=== PATIENT | female | born 1995 | race Caucasian/White ===

== ENCOUNTER 2017-06-17 12:42 | Emergency (ER) | payer BC ==
[~2017-06-17 12:42] MED LIST: CHOL200022; DIVSR125 PO; FEXO-67 PO; FLUT16SP19 NS; IVAB5TAB PO; IVAB7.5T; LEVA15HF IH; LIDO700A29 TD; MAGN500C10 PO; MIDO5TAB20 PO; MODA100T39 PO; OMEP-218 PO; ONDA4TAB PO; PROP60CA28 PO; SODI1TAB48 PO; [UNRECOGNIZED DRUG - CODE]; [UNRECOGNIZED DRUG - OTHER]
[2017-06-17] MEDS ORDERED: MIDO10TA9 PO (12:53)
[2017-06-17] MEDS ORDERED: DROX300C PO (12:53)
[2017-06-17] MEDS ORDERED: MODA100T39 PO (12:53)
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
[2017-06-17] MEDS ORDERED: ONDANSETRON 4 MG/2 ML VIAL IVP ONE (13:00)
[2017-06-17] MEDS ORDERED: LORazepam 2 MG/ML VIAL IVP ONE (13:00)
[2017-06-17] MEDS ORDERED: fentaNYL CITR 100 MCG/2 ML AMP IVP ONE (13:00)
[2017-06-17] MEDS ORDERED: IBUPROFEN 600 MG TAB PO ONE (13:35)
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
[2017-06-17 13:50] VITALS: BP 125/90
== END 2017-06-17 13:55 | disposition home or self-care (01) ==
LOC: ER 13:02
DX: S63.501A Unspecified sprain of right wrist, initial encounter (principal); V00.321A Fall from snow-skis, initial encounter; Y93.23 Activity, snow (alpine) (downhill) skiing, snowboarding, sledding, tobogganing and snow tubing
CPT/HCPCS: 73090; 73110; 99283; L3908

== ENCOUNTER 2018-04-07 20:08 | Emergency (ER) | payer OTHER, BC ==
[~2018-04-07 20:08] MED LIST changes: +DROX300C PO; +MIDO10TA9 PO
--- NOTE | 2018-04-07 20:35 | ER Report ---
History and Physical Time Seen By MD: 20:35 Hx. of Stated Complaint: Pt. having LLQ pain for a week. It had been intermittent, but now is constant. Pain 8/10. Denies fever, nausea present but no vomitting. Pain gets better with applied pressure on that area. Pt. has an IUD. LMP 03/29/18 HPI/ROS CHIEF COMPLAINT: abdominal pain HISTORY OF PRESENT ILLNESS: This is a 22 year old female. She is having left lower abdominal pain. Started about 1 week ago. Was intermittent, but now constant and becoming more severe. Sharp in quality. Worse with moving. Had a period last week and pain started at that time and has persisted and worsened as noted. No blood in stool noted. Normal urination without dysuria or frequency. Has had nausea, but no vomiting. No fevers. Seems to improved with pressure over the area. Tried a Lidoderm patch, no relief. Has an IUD, LMP as noted. Allergies: Coded Allergies: Penicillins (Verified Allergy, Unknown, 04/07/18) hydromorphone (Verified Allergy, Unknown, 04/07/18) latex (Verified Allergy, Unknown, 04/07/18) montelukast (Verified Allergy, Unknown, 04/07/18) morphine (Verified Allergy, Unknown, 04/07/18) papaya (Verified Allergy, Unknown, 04/07/18) Home Meds Active Scripts Ketorolac Tromethamine (KETOROLAC TROMETHAMINE) 10 Mg Tab, 10 MG PO Q6H PRN for PAIN, #12 TAB 0 Refills Prov:GAIL PATEL MD 04/08/18 Ivabradine HCl (Corlanor) 5 Mg Tablet, 5 MG PO BID, #60 TAB 0 Refills Prov:GAIL PATEL MD 06/27/16 Reported Medications Droxidopa (Northera) 300 Mg Capsule, 1 CAP PO TID 06/17/17 Midodrine Hcl (MIDODRINE HCL) 10 Mg Tablet, 5 MG PO TID 06/17/17 Modafinil (PROVIGIL) 100 Mg Tablet, 50 MG PO BID 06/17/17 [Salt Sticks] No Conflict Check 06/27/16 Propranolol Hcl (INDERAL LA) 60 Mg Cap.sa.24h, 10 MG PO PRN 05/17/16 Ondansetron (ZOFRAN ODT) 4 Mg Tab.rapdis, 4 MG PO Q8H PRN for prn, TAB.ELIZABETH 05/17/16 Magnesium Oxide (MAGNESIUM) 500 Mg Capsule, 500 MG PO, CAPSULE 05/17/16 Lidocaine (LIDODERM) 700 Mg Adh..patch, 1-3 PATCH TD QDAY 05/17/16 Levalbuterol Tartrate (XOPENEX HFA) 15 Gm Hfa.aer.ad, 15 GM IH q4h prn 05/17/16 Fluticasone Prop 50 Mcg Ns (FLONASE 50 MCG NS) 16 Gm [place].susp, 2 SPRAYS NS QDAY, BOT 05/17/16 Fexofenadine Hcl (DEEPALI ALLERGY) 180 Mg Tablet, 180 MG PO QDAY 05/17/16 Cholecalciferol (Vitamin D3) (Vitamin D-3) 2,000 Unit Tablet, QDAY 05/17/16 Discontinued Reported Medications Omeprazole Magnesium (PRILOSEC OTC) 20 Mg Tablet., 2 TAB PO QDAY, TAB 05/17/16 Reviewed Nurses Notes: Yes Hx Substance Use Disorder: No Hx Alcohol Use: No Constitutional Vital Sign - Last 24 Hours 04/07/18 04/07/18 04/07/18 04/07/18 20:13 20:15 20:30 20:38 Temp 98.8 Pulse 71 76 Resp 16 B/P (MAP) 130/94 130/94 (106) 122/102 (109) Pulse Ox 97 98 O2 Delivery Room Air 04/07/18 04/07/18 04/07/18 04/07/18 21:00 21:08 21:30 22:00 Pulse 63 B/P (MAP) 120/86 (97) 124/87 (99) 120/91 (101) Pulse Ox 97 04/07/18 04/07/18 04/07/18 04/07/18 22:05 22:10 22:25 22:30 Pulse 54 55 64 B/P (MAP) 121/83 (96) Pulse Ox 96 95 92 04/07/18 04/07/18 04/07/18 04/07/18 22:40 22:55 23:00 23:10 Pulse 58 64 59 B/P (MAP) 119/90 (100) Pulse Ox 95 95 95 04/07/18 04/07/18 04/07/1827/19 23:30 23:40 23:55 00:00 Pulse 57 59 B/P (MAP) 106/79 (88) 105/71 (82) Pulse Ox 96 92 04/08/18 04/08/18 04/08/18 04/08/18 00:00 00:15 00:30 00:45 Pulse 55 53 59 B/P (MAP) 105/71 (82) 83/66 (72) Pulse Ox 95 96 97 04/08/18 01:00 Pulse 75 B/P (MAP) 109/78 (88) Pulse Ox 91 Intake and Output 04/07/18 04/07/18 04/08/18 15:00 23:00 07:00 Intake Total 1000 ml Balance 1000 ml Physical Exam General Appearance: The patient is alert. No acute distress. Eyes: Pupils are equal, round. No pallor, injection or icterus. ENT: Mucous membranes are moist. Normal oral mucosa. Posterior oropharynx is normal. Neck: Supple and non tender. Respiratory: Lungs are clear to auscultation. Cardiovascular: Regular rate and rhythm. No murmurs, gallops or rubs. Normal capillary refill. Gastrointestinal: Abdomen is soft, has tenderness in lower left quadrant. Nondistended. Guarding, but no rebound. No masses or organomegaly. Normal active bowel sounds. Has some mild CVA on the left side. Neurological: Alert and oriented x3. No focal neurologic deficits Skin: Warm and dry. Musculoskeletal: Extremities are nontender. No tenderness in palpation of the cervical, thoracic and lumbar spine. DIFFERENTIAL DIAGNOSIS: After history and physical exam, differential diagnosis was considered for abdominal pain in a female including but not limited to ovarian cyst, pelvic inflammatory disease, ovarian torsion, urinary tract infection, and appendicitis. Medical Decision Making Data Points Result Diagram: 04/07/18201904/07/182019 Laboratory Hematology Test 04/07/18 20:17 04/07/18 20:20 Urine Color Yellow Urine Clarity Clear Urine pH 5.0 pH (4.8-9.5) Urine Specific [place] 1.011 Urine Protein Negative mg/dL (NEGATIVE) Urine Glucose (UA) Negative mg/dL (NEGATIVE) Urine Ketones Negative mg/dL (NEGATIVE) Urine Blood Negative (NEGATIVE) Urine Nitrite Negative (NEGATIVE) Urine Bilirubin Negative (NEGATIVE) Urine Urobilinogen Negative mg/dL (0.2-1.9) Urine Leukocyte Esterase Negative (NEGATIVE) Urine RBC 1 /HPF (0-2/HPF) Urine WBC 3 /HPF (0-5/HPF) Urine Squamous Epithelial Cells Few /LPF (</=FEW) Urine Bacteria Few /HPF (NONE-FEW) Urine Mucus None /HPF (NONE-FEW) Red Blood Count 5.10 M/uL (4.17-5.56) Mean Corpuscular Volume 91.2 fL (80.0-96.0) Mean Corpuscular Hemoglobin 31.4 pg (26.0-33.0) Mean Corpuscular Hemoglobin Concent 34.4 g/dL (32.0-36.0) Red Cell Distribution Width 12.7 % (11.5-14.5) Mean Platelet Volume 8.3 fL (7.2-11.1) Neutrophils (%) (Auto) 69.5 % (39.4-72.5) Lymphocytes (%) (Auto) 20.6 % (17.6-49.6) Monocytes (%) (Auto) 7.2 % (4.1-12.4) Eosinophils (%) (Auto) 2.3 % (0.4-6.7) Basophils (%) (Auto) 0.4 % (0.3-1.4) Nucleated RBC Relative Count (auto) 0.0 /100WBC Neutrophils # (Auto) 11.6 K/uL (2.0-7.4) Lymphocytes # (Auto) 3.5 K/uL (1.3-3.6) Monocytes # (Auto) 1.2 K/uL (0.3-1.0) Eosinophils # (Auto) 0.4 K/uL (0.0-0.5) Basophils # (Auto) 0.1 K/uL (0.0-0.1) Nucleated RBC Absolute Count (auto) 0.00 K/uL Sodium Level 140 mmol/L (137-145) Potassium Level 3.9 mmol/L (3.5-5.0) Chloride Level 107 mmol/L (98-107) Carbon Dioxide Level 25 mmol/L (22-31) Blood Urea Nitrogen 8 mg/dl (7-18) Creatinine 0.70 mg/dl (0.52-1.04) Glomerular Filtration Rate Calc > 60.0 Random Glucose 99 mg/dl (75-110) Calcium Level 9.8 mg/dl (8.4-10.2) Total Bilirubin 1.1 mg/dl (0.2-1.3) Aspartate Amino Transf (AST/SGOT) 19 U/L (0-35) Alanine Aminotransferase (ALT/SGPT) 21 U/L (0-56) Alkaline Phosphatase 59 U/L (0-126) Total Protein 8.0 g/dl (6.3-8.2) Albumin 4.8 g/dl (3.5-5.0) Amylase Level 63 U/L (0-110) Lipase 105 U/L (23-300) Human Chorionic Gonadotropin, Qual Negative (NEGATIVE) Chemistry Test 04/07/18 20:17 04/07/18 20:20 Urine Color Yellow Urine Clarity Clear Urine pH 5.0 pH (4.8-9.5) Urine Specific [place] 1.011 Urine Protein Negative mg/dL (NEGATIVE) Urine Glucose (UA) Negative mg/dL (NEGATIVE) Urine Ketones Negative mg/dL (NEGATIVE) Urine Blood Negative (NEGATIVE) Urine Nitrite Negative (NEGATIVE) Urine Bilirubin Negative (NEGATIVE) Urine Urobilinogen Negative mg/dL (0.2-1.9) Urine Leukocyte Esterase Negative (NEGATIVE) Urine RBC 1 /HPF (0-2/HPF) Urine WBC 3 /HPF (0-5/HPF) Urine Squamous Epithelial Cells Few /LPF (</=FEW) Urine Bacteria Few /HPF (NONE-FEW) Urine Mucus None /HPF (NONE-FEW) White Blood Count 16.8 k/uL (4.5-11.0) Red Blood Count 5.10 M/uL (4.17-5.56) Hemoglobin 16.0 g/dL (12.0-16.0) Hematocrit 46.5 % (34.0-47.0) Mean Corpuscular Volume 91.2 fL (80.0-96.0) Mean Corpuscular Hemoglobin 31.4 pg (26.0-33.0) Mean Corpuscular Hemoglobin Concent 34.4 g/dL (32.0-36.0) Red Cell Distribution Width 12.7 % (11.5-14.5) Platelet Count 374 K/uL (150-450) Mean Platelet Volume 8.3 fL (7.2-11.1) Neutrophils (%) (Auto) 69.5 % (39.4-72.5) Lymphocytes (%) (Auto) 20.6 % (17.6-49.6) Monocytes (%) (Auto) 7.2 % (4.1-12.4) Eosinophils (%) (Auto) 2.3 % (0.4-6.7) Basophils (%) (Auto) 0.4 % (0.3-1.4) Nucleated RBC Relative Count (auto) 0.0 /100WBC Neutrophils # (Auto) 11.6 K/uL (2.0-7.4) Lymphocytes # (Auto) 3.5 K/uL (1.3-3.6) Monocytes # (Auto) 1.2 K/uL (0.3-1.0) Eosinophils # (Auto) 0.4 K/uL (0.0-0.5) Basophils # (Auto) 0.1 K/uL (0.0-0.1) Nucleated RBC Absolute Count (auto) 0.00 K/uL Glomerular Filtration Rate Calc > 60.0 Calcium Level 9.8 mg/dl (8.4-10.2) Total Bilirubin 1.1 mg/dl (0.2-1.3) Aspartate Amino Transf (AST/SGOT) 19 U/L (0-35) Alanine Aminotransferase (ALT/SGPT) 21 U/L (0-56) Alkaline Phosphatase 59 U/L (0-126) Total Protein 8.0 g/dl (6.3-8.2) Albumin 4.8 g/dl (3.5-5.0) Amylase Level 63 U/L (0-110) Lipase 105 U/L (23-300) Human Chorionic Gonadotropin, Qual Negative (NEGATIVE) Urinalysis Test 04/07/18 20:17 Urine Color Yellow Urine Clarity Clear Urine pH 5.0 pH (4.8-9.5) Urine Specific [place] 1.011 Urine Protein Negative mg/dL (NEGATIVE) Urine Glucose (UA) Negative mg/dL (NEGATIVE) Urine Ketones Negative mg/dL (NEGATIVE) Urine Blood Negative (NEGATIVE) Urine Nitrite Negative (NEGATIVE) Urine Bilirubin Negative (NEGATIVE) Urine Urobilinogen Negative mg/dL (0.2-1.9) Urine Leukocyte Esterase Negative (NEGATIVE) Urine RBC 1 /HPF (0-2/HPF) Urine WBC 3 /HPF (0-5/HPF) Urine Squamous Epithelial Cells Few /LPF (</=FEW) Urine Bacteria Few /HPF (NONE-FEW) Urine Mucus None /HPF (NONE-FEW) EKG/Imaging Imaging EXAMINATION: CT abdomen and pelvis with IV contrast HISTORY: Abdominal pain for 2 days. TECHNIQUE: Axial CT images of the abdomen and pelvis were obtained with IV contrast, with coronal and sagittal 2D reconstructed images. One of the following dose optimization techniques was utilized in the performance of this exam: Automated exposure control; adjustment of the mA and/or kV according to the patient's size; or use of an iterative reconstruction technique. Specific details can be referenced in the facility's radiology CT exam operational policy. Contrast: 75 mL of IV Isovue-370. COMPARISON: None. FINDINGS: Liver: There is a 1 cm hypodensity in the superior aspect of segment IV, likely a small cyst or hemangioma. No other focal liver lesion. The hepatic veins and portal veins are patent. Gallbladder and bile ducts: Negative. Spleen: Negative. Pancreas: Negative. Adrenal glands: Negative. Kidneys: Negative. No hydronephrosis or urinary calculi. Bowel and peritoneum: The small bowel and colon are normal in caliber, without evidence of obstruction or any focal inflammatory process. No localized bowel wall thickening. Normal appendix in the right lower quadrant. No free fluid or free intraperitoneal air. Pelvic structures: The uterus is anteverted in position, with an IUD in place along the central endometrial cavity. There is a complex left adnexal cyst, measuring 4.3 x 4.6 cm. The right adnexa is grossly unremarkable by CT. Lymph node assessment: Negative. Vessels: Negative. Musculoskeletal: Negative. Body wall: Negative. Lung bases: Negative. IMPRESSION: 1. Complex left adnexal cyst, measuring up to 4.6 cm. Differential consid erations include a hemorrhagic cyst in the left ovary, other complex ovarian cyst, or less likely PID with tubo-ovarian abscess. Correlate clinically and with appropriate laboratory analysis. Follow-up pelvic ultrasound could be performed for further evaluation. 2. IUD in place along the central endometrial cavity. 3. No other acute intra-abdominal findings. The visualized appendix is unremarkable. Report Dictated By: Ben Morales MD at 04/07/2018 10:04 PM EXAMINATION: ENDOVAGINAL PELVIC ULTRASOUND WITH DOPPLER DATE: 04/07/2018 10:51 PM INDICATION: Left lower abdominal pain, left adnexal cyst on CT. TECHNIQUE: Endovaginal pedersen scale, color, and pulsed Doppler ultrasound examination of the pelvis was performed. COMPARISON: Same-day CT abdomen and pelvis. FINDINGS: The uterus is anteverted and anteflexed and measures 6.5 x 3.1 x 3.6 cm. There is no definite focal lesion in the myometrium. The endometrial stripe measures 4 mm in AP thickness, which is within normal limits. IUD in place. The right ovary measures 3.7 x 1.9 x 2.1 cm and demonstrates physiologic follicles and appears to have preserved venous and arterial waveforms on pulsed Doppler. The left ovary measures 6.2 x 5.0 x 5.8 cm and demonstrates physiologic follicles and appears to have preserved venous and arterial waveforms on pulsed Doppler. The left ovary also contains a complex cyst with a thick septation versus 2 adjacent complex cysts. The smaller component measures 3.1 x 3.4 x 1.1 cm, and the larger component measures 4.9 x 3.7 x 4.0 cm. Both lesions have largely slightly heterogeneously isoechoic internal components with a small amount of anechoic component. There is no free fluid or adnexal mass in the pelvic cavity. IMPRESSION: Complex left ovarian cyst/cysts with no definite evidence of torsion. This may represent an atypical appearance of a hemorrhagic cyst. Recommend 6-12 week follow-up, or earlier if clinically indicated. Consider gynecologic consultation. Report Dictated By: Marc Davenport MD at 04/08/2018 12:15 AM ED Course/Re-evaluation ED Course CT and ultrasound revealed hemorrhagic ovarian cysts. Normal blood flow without torsion. Pain controlled with a dose of Fentanyl. She prefers not to use any other pain medicine because of family history of addiction. We gave Toradol for pain. She will follow-up with her EDUCATIONAL PROGRAMMING DIRECTOR on Monday morning. Decision to Disposition Date: Apr 08, 2018 Decision to Disposition Time: 00:53 Depart Departure Latest Vital Signs Vital Signs Date Time Temp Pulse Resp B/P (MAP) Pulse Ox O2 Delivery O2 Flow Rate FiO2 04/08/18 01:00 75 109/78 (88) 91 04/07/18 20:13 98.8 16 Room Air Impression: Primary Impression: Hemorrhagic cyst of left ovary Condition: Improved Disposition: HOME OR SELF-CARE Referrals: CAITLIN GUERRERO MD (PCP) New Scripts Ketorolac Tromethamine (KETOROLAC TROMETHAMINE) 10 Mg Tab 10 MG PO Q6H PRN for PAIN, #12 TAB 0 Refills Prov: GAIL PATEL MD 04/08/18 Patient Instructions: Ovarian Cyst (ED) Additional Instructions: Take Toradol 10mg, one every 6 hours as needed for pain. Call your EDUCATIONAL PROGRAMMING DIRECTOR on Monday morning for follow-up Return as needed for worsening pain. GAIL PATEL MD Apr 07, 2018 20:35
[2018-04-07] MEDS ORDERED: NS(*) 0.9% 1000 ML BAG 1,000 ML IV ONE (21:00)
[2018-04-07 21:16] LABS: PLATELET COUNT, AUTOMATED 374 K/uL (150-450)
[2018-04-07] MEDS ORDERED: IOPAMIDOL 76% 50 ML INFUS BTL 100 ML ONE (21:37)
--- NOTE | 2018-04-07 22:13 | RADIOLOGY IMAGING REPORT ---
FACILITY: [facility] - [place] PATIENT NAME: Jaz Hernandez : 1995 MR: [id number] V: [id number] EXAM DATE: ORDERING PHYSICIAN: GAIL PATEL TECHNOLOGIST: Location: [facility] - [place] Patient: Jaz Hernandez : 1995 Visit/Account:[id number] Date of Sevice: 04/07/2018 EXAMINATION: CT abdomen and pelvis with IV contrast HISTORY: Abdominal pain for 2 days. TECHNIQUE: Axial CT images of the abdomen and pelvis were obtained with IV contrast, with coronal a nd sagittal 2D reconstructed images. One of the following dose optimization techniques was utilized in the performance of this exam: Autom ated exposure control; adjustment of the mA and/or kV according to the patient's size; or use of an i terative reconstruction technique. Specific details can be referenced in the facility's radiology C T exam operational policy. Contrast: 75 mL of IV Isovue-370. COMPARISON: None. FINDINGS: Liver: There is a 1 cm hypodensity in the superior aspect of segment IV, likely a small cyst or elana ngioma. No other focal liver lesion. The hepatic veins and portal veins are patent. Gallbladder and bile ducts: Negative. Spleen: Negative. Pancreas: Negative. Adrenal glands: Negative. Kidneys: Negative. No hydronephrosis or urinary calculi. Bowel and peritoneum: The small bowel and colon are normal in caliber, without evidence of obstructi on or any focal inflammatory process. No localized bowel wall thickening. Normal appendix in the righ t lower quadrant. No free fluid or free intraperitoneal air. Pelvic structures: The uterus is anteverted in position, with an IUD in place along the central e ndometrial cavity. There is a complex left adnexal cyst, measuring 4.3 x 4.6 cm. The right adnexa is grossly unremarkable by CT. Lymph node assessment: Negative. Vessels: Negative. Musculoskeletal: Negative. Body wall: Negative. Lung bases: Negative. IMPRESSION: 1. Complex left adnexal cyst, measuring up to 4.6 cm. Differential considerations include a hemorrhag ic cyst in the left ovary, other complex ovarian cyst, or less likely PID with tubo-ovarian abscess. Correlate clinically and with appropriate laboratory analysis. Follow-up pelvic ultrasound could be p erformed for further evaluation. 2. IUD in place along the central endometrial cavity. 3. No other acute intra-abdominal findings. The visualized appendix is unremarkable. Report Dictated By: Ben Morales MD at 04/07/2018 10:04 PM Report E-Signed By: Ben Morales MD at 04/07/2018 10:09 PM WSN:[id number]
[2018-04-07] MEDS ORDERED: fentaNYL CITR 100 MCG/2 ML AMP IVP ONE (22:55)
--- NOTE | 2018-04-08 00:25 | RADIOLOGY IMAGING REPORT ---
FACILITY: [facility] - [place] PATIENT NAME: Jaz Hernandez : 1995 MR: [id number] V: [id number] EXAM DATE: ORDERING PHYSICIAN: GAIL PATEL TECHNOLOGIST: Location: [facility] - [place], [place] Patient: Jaz Hernandez : 1995 Visit/Account:[id number] Date of Sevice: 04/07/2018 EXAMINATION: ENDOVAGINAL PELVIC ULTRASOUND WITH DOPPLER DATE: 04/07/2018 10:51 PM INDICATION: Left lower abdominal pain, left adnexal cyst on CT. TECHNIQUE: Endovaginal pedersen scale, color, and pulsed Doppler ultrasound examination of the pelvis was performed. COMPARISON: Same-day CT abdomen and pelvis. FINDINGS: The uterus is anteverted and anteflexed and measures 6.5 x 3.1 x 3.6 cm. There is no definite focal l esion in the myometrium. The endometrial stripe measures 4 mm in AP thickness, which is within normal limits. IUD in place. The right ovary measures 3.7 x 1.9 x 2.1 cm and demonstrates physiologic follicles and appears to hav e preserved venous and arterial waveforms on pulsed Doppler. The left ovary measures 6.2 x 5.0 x 5.8 cm and demonstrates physiologic follicles and appears to have preserved venous and arterial waveforms on pulsed Doppler. The left ovary also contains a complex cyst with a thick septation versus 2 quyn[address] complex cysts. The smaller component measures 3.1 x 3.4 x 1.1 cm, and the larger component malka ures 4.9 x 3.7 x 4.0 cm. Both lesions have largely slightly heterogeneously isoechoic internal compo nents with a small amount of anechoic component. There is no free fluid or adnexal mass in the pelvic cavity. IMPRESSION: Complex left ovarian cyst/cysts with no definite evidence of torsion. This may represent an atypical appearance of a hemorrhagic cyst. Recommend 6-12 week follow-up, or earlier if clinical ly indicated. Consider gynecologic consultation. Report Dictated By: Marc Davenport MD at 04/08/2018 12:15 AM Report E-Signed By: Marc Davenport MD at 04/08/2018 12:21 AM WSN:[id number]
[2018-04-08] MEDS ORDERED: KET10 PO (00:54)
[2018-04-08] MEDS ORDERED: KETOROLAC TROM 10 MG TAB TH PO ONE (00:55)
[2018-04-08 01:00] VITALS: BP 109/78
== END 2018-04-08 01:18 | disposition home or self-care (01) ==
LOC: ER 20:24
DX: N83.202 Unspecified ovarian cyst, left side (principal)
CPT/HCPCS: 74177; 76830; 81001; 82150; 83690; 84703; 85025; 96361; 96374; 99284; J3010; J7030; Q9967; 82040; 82247; 82310; 82374; 82435; 82565; 82947; 84075; 84132; 84155; 84295; 84450; 84460; 84520